=== PATIENT | male | born 1995 | race Two or more races ===

== ENCOUNTER 2024-04-06 20:17 | Emergency (ER) | payer OTHER ==
[~2024-04-06] VITALS: Ht 167.6 cm; Wt 74.8 kg
[2024-04-06] MEDS ORDERED: WELLBUTRIN SR200 MG PO (20:56)
[2024-04-06] MEDS ORDERED: DEPAKOTE SPRIN125 MG PO (20:56)
[2024-04-06] MEDS ORDERED: CLONAZEPAM0.5 MG PO (20:57)
[2024-04-06] MEDS ORDERED: DIPHENHYDRAMINE HCL 25 MG CAPSULE PO STA (22:00)
[2024-04-06] MEDS ORDERED: DIPHENHYDRAMINE HCL 50 MG/ML VIAL 1ML IM STA (22:01)
[2024-04-06 22:39] LABS: HEMATOCRIT 41.7 % (39.0-48.0); HEMOGLOBIN 14.4 g/dL (13-16.00); MEAN CELL VOLUME 87.5 fL (80.0-100.00); MEAN CORPUSCULAR HEMOGLOBIN 30.1 pg (27.00-32.0); MEAN CORPUSCULAR HGB CONC 34.4 g/dl (32.0-36.0); PLATELET COUNT 258 K/uL (150-450); RED BLOOD COUNT 4.76 M/uL (4.00-6.00); RED CELL DISTRIBUTION WIDTH 12.8 % (11.5-14.5)
== END 2024-04-06 23:33 | disposition home or self-care (01) ==
LOC: ER 20:19
PROVIDERS: General Practice
DX: R21 Rash and other nonspecific skin eruption (principal)